=== PATIENT | male | born 1990 | race Two or more races ===

== ENCOUNTER 2022-09-27 22:55 | Emergency (ER) | payer OTHER ==
[2022-09-27 23:03] VITALS: BP 117/63
[2022-09-28 00:30] LABS: B. PARAPERTUSSIS- RESP PCR PAN NOT DETECTED; B. PERTUSSIS- RESP PCR PANEL NOT DETECTED; C. PNEUMONIAE- RESP PCR PANEL NOT DETECTED; CORONAVIRUS 229E-RESP PCR NOT DETECTED; CORONAVIRUS HKU1-RESP PCR NOT DETECTED; CORONAVIRUS NL63-RESP PCR NOT DETECTED; CORONAVIRUS OC43-RESP PCR NOT DETECTED; HUMAN METAPNEUMOVIRUS NOT DETECTED; INFLUENZA A- RESP PCR PANEL NOT DETECTED; INFLUENZA B - RESP PCR PANEL NOT DETECTED; M. PNEUMONIAE- RESP PCR PANEL NOT DETECTED; PARAINFLUENZA VIRUS 1 NOT DETECTED; PARAINFLUENZA VIRUS 2 NOT DETECTED; PARAINFLUENZA VIRUS 3 NOT DETECTED; PARAINFLUENZA VIRUS 4 NOT DETECTED; RHINOVIRUS/ENTEROVIRUS NOT DETECTED; RSV- RESP PCR PANEL NOT DETECTED
[2022-09-28 00:31] LABS: SARS-CoV-2 -RESP PCR PANEL DETECTED
--- NOTE | 2022-09-28 01:50 | ED Physician Documentation ---
History of Present Illness - Stated complaint Stated Complaint: COUGH,CONGESTION,SORE THROAT - Chief complaint Chief Complaint: General - History obtained from History obtained from: Patient - History of Present Illness Timing: Yesterday Improved by: no ameliorating factors Worsened by: no exacerbating factors - Additonal information Additional information: HPI from patient. He c/o chills, malaise, dizziness, generalized headache and myalgias. Gradual onset of symptoms approximately 24 hours ago. Review of Systems Constitutional: reports: Chills, Myalgias, Fatigue Throat: denies: Sore throat Respiratory: reports: Cough. denies: Dyspnea GI: reports: Reviewed and negative Neurologic: reports: Headache PD PAST MEDICAL HISTORY - Past Medical History Past Medical History: No - Past Surgical History Past Surgical History: No - Present Medications Home Medications: Ambulatory Orders Medication Instructions Recorded Confirmed Dextroamphetamine/Amphetamine 15 mg PO DAILY 09/27/22 09/27/22 [Adderall 15 mg Tablet] - Allergies Allergies/Adverse Reactions: Allergies Allergy/AdvReac Type Severity Reaction Status Date / Time No Known Drug Allergies Allergy Verified 09/27/22 23:02 - Social History Does the pt smoke?: No Smoking Status: Never smoker Does the pt drink ETOH?: No Does the pt have substance abuse?: No - Immunizations Immunizations are current?: Yes PD ED PE NORMAL - Vitals Vital signs reviewed: Yes - General General: Alert and oriented X 3, No acute distress, Well developed/nourished - HEENT HEENT: Moist mucous membranes - Neck Neck: Supple, no meningeal sign - Cardiac Cardiac: RRR, No murmur - Respiratory Respiratory: No respiratory distress, Clear bilaterally Results - Vitals Vitals: Oxygen O2 Source Room air - Labs Labs: Laboratory Tests 09/27/22 23:29 Nasal Adenovirus (PCR) NOT DETECTED Nasal B. parapertussis DNA (PCR) NOT DETECTED Nasal Coronavir 229E PCR NOT DETECTED Nasal Coronavir HKU1 PCR NOT DETECTED Nasal Coronavir NL63 PCR NOT DETECTED Nasal Coronavir OC43 PCR NOT DETECTED Nasal Enterovir/Rhinovir PCR NOT DETECTED Nasal Influenza B PCR NOT DETECTED Nasal Influenza A PCR NOT DETECTED Nasal Parainfluen 1 PCR NOT DETECTED Nasal Parainfluen 2 PCR NOT DETECTED Nasal Parainfluen 3 PCR NOT DETECTED Nasal Parainfluen 4 PCR NOT DETECTED Nasal RSV (PCR) NOT DETECTED Nasal B.pertussis DNA PCR NOT DETECTED Nasal C.pneumoniae (PCR) NOT DETECTED Ron Human Metapneumo PCR NOT DETECTED Nasal M.pneumoniae (PCR) NOT DETECTED Nasal SARS-CoV-2 (PCR) DETECTED A PD Medical Decision Making - ED course Complexity details: reviewed results, considered differential, d/w patient ED course: Respiratory PCR panel is positive for SARS-COV-2, negative for other viruses tested on this panel. Results d/w patient. He is in no respiratory distress and lungs CTA bilaterally. No further emergent testing indicated at this time. Return precautions discussed with patient Departure - Departure Disposition: 01 Home, Self Care Clinical Impression: COVID-19 Condition: Good Instructions: ED Viral Syndrome Comments: You tested positive for COVID-19 tonight. You tested negative for influenza, RSV, as well as several other viruses that are included on this nasal swab test. Google "CDC isolation" and then click on the link to "Isolation and Precautions for People with COVID-19 - CDC". This will have useful information for you as well as household contacts. There is a calculator on the page that will determ ine when you can end isolation. Discharge Date/Time: 09/28/22 02:14
[2022-09-28] MEDS ORDERED: NIRMATRELVIR/RITONAVIR PREPACK PO STA (02:04)
[2022-09-28] MEDS ORDERED: ACETAMINOPHEN 325 MG TABLET PO STA (02:04)
== END 2022-09-28 02:14 | disposition home or self-care (01) ==
LOC: ED 22:55
DX: U07.1 COVID-19 (principal)
CPT/HCPCS: 87633; 99282; 99283; A9270; J3490

== ENCOUNTER 2023-12-15 05:32 | Emergency (ER) | payer OTHER ==
--- NOTE | 2023-12-15 05:44 | ED Physician Documentation ---
PD HPI URI - Stated complaint Stated Complaint: FEVER/BODY ACHES/CHEST TIGHNESS - History obtained from History obtained from: Patient - History of Present Illness Timing - onset: How many days ago (2) Timing duration: Days (2) Timing details: Abrupt onset, Still present Associated symptoms: Fever, Chills, Dry cough, Dyspnea. No: NVD Contributing factors: Sick contact (work). No: COPD / asthma Similar symptoms before: Has not had sx before PD PAST MEDICAL HISTORY - Past Medical History Cardiovascular: None Respiratory: None Neuro: None Endocrine/Autoimmune: None - Past Surgical History Past Surgical History: No - Present Medications Home Medications: Ambulatory Orders Medication Instructions Recorded Confirmed Dextroamphetamine/Amphetamine 15 mg PO DAILY 09/27/22 12/15/23 [Adderall 15 mg Tablet] Ibuprofen [Motrin] 600 mg PO TID PRN #25 tab 12/15/23 Ondansetron Odt [Zofran] 4 mg TL Q6H PRN #10 tablet 12/15/23 - Allergies Allergies/Adverse Reactions: Allergies Allergy/AdvReac Type Severity Reaction Status Date / Time No Known Drug Allergies Allergy Verified 12/15/23 05:45 - Social History Does the pt smoke?: No Smoking Status: Never smoker Does the pt drink ETOH?: No Does the pt have substance abuse?: No - Immunizations Immunizations are current?: Yes PD ED PE NORMAL - Vitals Vital signs reviewed: Yes - General General: Alert and oriented X 3, No acute distress, Well developed/nourished - HEENT HEENT: Moist mucous membranes, Pharynx benign - Neck Neck: Supple, no meningeal sign, No adenopathy - Cardiac Cardiac: RRR, No murmur - Respiratory Respiratory: No respiratory distress, Clear bilaterally - Abdomen Abdomen: Soft, Non tender Results - Vitals Vitals: Oxygen O2 Source Room air - Labs Labs: Laboratory Tests 12/15/23 05:41 Nasal Adenovirus (PCR) NOT DETECTED Nasal B. parapertussis DNA (PCR) NOT DETECTED Nasal Coronavir 229E PCR NOT DETECTED Nasal Coronavir HKU1 PCR NOT DETECTED Nasal Coronavir NL63 PCR NOT DETECTED Nasal Coronavir OC43 PCR DETECTED A Nasal Enterovir/Rhinovir PCR NOT DETECTED Nasal Influenza B PCR NOT DETECTED Nasal Influenza A PCR NOT DETECTED Nasal Parainfluen 1 PCR NOT DETECTED Nasal Parainfluen 2 PCR NOT DETECTED Nasal Parainfluen 3 PCR NOT DETECTED Nasal Parainfluen 4 PCR NOT DETECTED Nasal RSV (PCR) NOT DETECTED Nasal B.pertussis DNA PCR NOT DETECTED Nasal C.pneumoniae (PCR) NOT DETECTED Ron Human Metapneumo PCR NOT DETECTED Nasal M.pneumoniae (PCR) NOT DETECTED Nasal SARS-CoV-2 (PCR) NOT DETECTED PD Medical Decision Making - ED course Complexity details: reviewed results (viral panel showing non COVID caronovirus infection. ), considered differential (having viral type symptoms. Chest without coarse sounds and sats are good. Does not seem pneumonic. Can treat symptoms with some meds. Mostly fluids and rest. Testing showing viral cause. ) Departure - Departure Disposition: 01 Home, Self Care Clinical Impression: Flu-like symptoms, Other coronavirus as the cause of diseases classified el sewhere Condition: Stable Record reviewed to determine appropriate education?: Yes Instructions: ED Flu, ED Viral Syndrome Follow-Up: JOSEPH HURLEY MD [Primary Care Provider] - Prescriptions: Ibuprofen [Motrin] 600 mg PO TID PRN #25 tab PRN Reason: Pain Ondansetron Odt [Zofran] 4 mg TL Q6H PRN #10 tablet PRN Reason: Nausea / Vomiting Comments: Is your viral PCR panel was showing a 9 COVID coronavirus. Essentially a flulike illness. It should not be as severe as COVID would be or the basic flu but still will make you feel badly for likely 5 or 6 days. Stay well-hydrated. Ondansetron if needed for nausea. I would suggest some Tylenol and/or ibuprofen regularly to help with bodyaches and chills etc. I wrote a off duty note for 3 more days including today as a likely timeframe for this. Rest and stay well-hydrated. Forms: Activity restrictions Discharge Date/Time: 12/15/23 07:46
[2023-12-15 05:49] VITALS: BP 120/74; O2SAT 97
[2023-12-15] MEDS: ACETAMINOPHEN 500 MG TABLET PO STA (06:05)
[2023-12-15] MEDS: ONDANSETRON ODT 4 MG TABLET TL STA (06:06)
[2023-12-15] MEDS: IBUPROFEN 400 MG TABLET PO STA (06:06)
[2023-12-15 06:59] LABS: B. PARAPERTUSSIS- RESP PCR PAN NOT DETECTED; B. PERTUSSIS- RESP PCR PANEL NOT DETECTED; C. PNEUMONIAE- RESP PCR PANEL NOT DETECTED; CORONAVIRUS 229E-RESP PCR NOT DETECTED; CORONAVIRUS HKU1-RESP PCR NOT DETECTED; CORONAVIRUS NL63-RESP PCR NOT DETECTED; CORONAVIRUS OC43-RESP PCR DETECTED; HUMAN METAPNEUMOVIRUS NOT DETECTED; INFLUENZA A- RESP PCR PANEL NOT DETECTED; INFLUENZA B - RESP PCR PANEL NOT DETECTED; M. PNEUMONIAE- RESP PCR PANEL NOT DETECTED; PARAINFLUENZA VIRUS 1 NOT DETECTED; PARAINFLUENZA VIRUS 2 NOT DETECTED; PARAINFLUENZA VIRUS 3 NOT DETECTED; PARAINFLUENZA VIRUS 4 NOT DETECTED; RHINOVIRUS/ENTEROVIRUS NOT DETECTED; RSV- RESP PCR PANEL NOT DETECTED; SARS-CoV-2 -RESP PCR PANEL NOT DETECTED
== END 2023-12-15 07:46 | disposition home or self-care (01) ==
LOC: ED 05:32
DX: J11.1 Influenza due to unidentified influenza virus with other respiratory manifestations (principal); B97.29 Other coronavirus as the cause of diseases classified elsewhere
CPT/HCPCS: 87633; 99283; A9270; Q0162